=== PATIENT | male | born 1960 | race Caucasian/White ===

== ENCOUNTER 2023-06-01 13:38 | Inpatient (IN) | payer MEDICAID ==
[~2023-06-01] VITALS: Ht 175.3 cm; Wt 56.7 kg
[2023-06-01 14:07] VITALS: BP 117/58; PULSE 109; RESP 19; TEMP 97.9; O2SAT 99
[2023-06-01] MEDS: NACL 0.9% 1,000 ML IV SCH (15:44)
[2023-06-01] MEDS: ONDANSETRON 4 MG/2 ML VIAL IVP ONE (15:54)
[2023-06-01 16:04] LABS: BASOPHILS % (AUTO) 0.2 % (0.0-2.0); EOSINOPHILS % (AUTO) 0.2 % (0.0-4.0); HEMATOCRIT 26.9 % (36-52); HEMOGLOBIN 9.6 g/dL (12.0-18.0); LYMPHOCYTES # (AUTO) 0.3 K/uL (2.0-11.5); LYMPHOCYTES % (AUTO) 2.4 % (20.5-51.1); MEAN CORPUSCULAR HEMOGLOBIN 32 pg (27-31); MEAN CORPUSCULAR HGB CONC 36 g/dL (33-37); MONOCYTES # (AUTO) 1.2 K/uL (0.8-1.0); MONOCYTES % (AUTO) 11.9 % (1.7-9.3); NEUTROPHILS # (AUTO) 8.9 K/uL (1.8-7.7); NEUTROPHILS % (AUTO) 85.3 % (42.2-75.2); PLATELET COUNT (AUTO) 92 K/uL (140-450); RED BLOOD CELL COUNT(AUTO) 2.96 MIL/uL (4.20-6.10); RED CELL DISTRIBUTION WIDTH 15.5 % (11.6-13.7); WHITE BLOOD COUNT (AUTO) 10.5 K/uL (4.8-10.8)
[2023-06-01] MEDS ORDERED: FLUO10CA21 PO (16:04)
[2023-06-01] MEDS ORDERED: AMIO200T62 PO (16:04)
[2023-06-01] MEDS ORDERED: AMYL-43 PO (16:04)
[2023-06-01] MEDS ORDERED: QUET300T1 PO (16:04)
[2023-06-01] MEDS ORDERED: ATOR10TA PO (16:04)
[2023-06-01] MEDS ORDERED: [UNRECOGNIZED DRUG - CODE] IH (16:04)
[2023-06-01] MEDS ORDERED: SENN-72 PO (16:04)
[2023-06-01] MEDS ORDERED: METF-1139 PO (16:04)
[2023-06-01] MEDS ORDERED: VARE1TAB34 PO (16:04)
[2023-06-01] MEDS ORDERED: TOP100 PO (16:04)
[2023-06-01 16:21] LABS: INR 1.33 (0.8-1.2); PARTIAL THROMBOPLASTIN TIME 41.7 secs (22-35.6); PROTHROMBIN TIME 13.8 secs (10.8-13.4)
[2023-06-01 16:36] LABS: ANION GAP 14.4 (8-16); CALCIUM 8.1 mg/dL (8.5-10.1); CARBON DIOXIDE 22.3 mmol/L (21-32); CREATININE 1.1 mg/dL (0.6-1.3)
[2023-06-01 16:38] LABS: ALANINE AMINOTRANSFERASE 89 U/L (12-78); ALBUMIN 1.7 g/dL (3.4-5.0); ALCOHOL, BLOOD < 3 mg/dL (<10); ALKALINE PHOSPHATASE 400 U/L (50-136); ASPARTATE AMINOTRANSFERASE 64 U/L (15-37); BILIRUBIN,DIRECT 6.3 mg/dL (0.0-0.3); CREATINE KINASE, TOTAL 70 U/L (39-308); LIPASE 23 U/L (16-77); POTASSIUM 2.7 mmol/L (3.5-5.1); TOTAL BILIRUBIN 7.5 mg/dL (0.0-1.0); TOTAL PROTEIN, SERUM 5.7 g/dL (6.4-8.2)
[2023-06-01 16:39] LABS: ACETAMINOPHEN < 0.5 ug/ml (10-30); SALICYLATE < 2.8 mg/dL (2.8-20.0)
[2023-06-01 16:49] LABS: LACTIC ACID 2.7 mmol/L (0.4-2.0)
[2023-06-01] MEDS ORDERED: cefTRIAXone 1,000 MG VIAL ONE (17:34)
[2023-06-01] MEDS: NACL 0.9% 1,000 ML IV ONE (17:43)
[2023-06-01] MEDS: metroNIDAZOLE 500 MG/NS PREMIX 100 ML IV ONE (18:33)
[2023-06-01 19:28] LABS: APPEARANCE,URINE CLEAR (CLEAR); BILIRUBIN,URINE 2+ (NEGATIVE); BLOOD, URINE NEGATIVE (NEGATIVE); LEUKOCYTE ESTERASE ,URINE NEGATIVE (NEGATIVE); NITRITE, URINE NEGATIVE (NEGATIVE); PROTEIN,URINE TRACE (NEGATIVE); UGLUCOSE NEGATIVE (NEGATIVE)
[2023-06-01 19:32] LABS: COLOR,URINE ORANGE (YELLOW); ICTOTEST POSITIVE (NEGATIVE)
[2023-06-01 19:39] VITALS: O2SAT 97
[2023-06-01] MEDS: POTASSIUM CHLORIDE 20% 40 MEQ/15 ML UDC PO ONE (19:43)
[2023-06-01] MEDS ORDERED: MORPHINE SULFATE 4 MG/ML SYR IVP PRN (20:45)
[2023-06-01] MEDS ORDERED: ACETAMINOPHEN 325 MG TAB PO PRN (20:45)
[2023-06-01] MEDS ORDERED: HYDROcodone/APAP 5/325 MG 1 TAB TAB PO PRN (20:45)
[2023-06-01] MEDS ORDERED: ZOLPIDEM 10 MG TAB PO PRN ×2 (20:55)
[2023-06-01] MEDS ORDERED: MAG SULF 2000 MG/WATER PREMIX 50 ML IV PRN (20:55)
[2023-06-01] MEDS: PIPERACILLIN/TAZOBACTAM 3.375 GM in DEXTROSE 5% 50 ML IV SCH (21:00)
[2023-06-01] MEDS ORDERED: PIPERACILLIN/TAZOBACTAM 3.375 GM VIAL IV ONE (21:34)
[2023-06-01] MEDS: DEXT 5% / NACL 0.45% 1,000 ML IV SCH (22:23)
[2023-06-02] VITALS (9 sets, daily range): RESP 20; O2SAT 97–99
[2023-06-02 05:34] LABS: BASOPHILS % (AUTO) 0.2 % (0.0-2.0); EOSINOPHILS % (AUTO) 0.4 % (0.0-4.0); HEMATOCRIT 26.5 % (36-52); HEMOGLOBIN 9.1 g/dL (12.0-18.0); LYMPHOCYTES # (AUTO) 0.6 K/uL (2.0-11.5); LYMPHOCYTES % (AUTO) 5.2 % (20.5-51.1); MEAN CORPUSCULAR HEMOGLOBIN 32 pg (27-31); MEAN CORPUSCULAR HGB CONC 34 g/dL (33-37); MEAN CORPUSCULAR VOLUME 91.7 fL (80-94); MONOCYTES # (AUTO) 1.8 K/uL (0.8-1.0); MONOCYTES % (AUTO) 14.7 % (1.7-9.3); NEUTROPHILS # (AUTO) 9.8 K/uL (1.8-7.7); NEUTROPHILS % (AUTO) 79.5 % (42.2-75.2); PLATELET COUNT (AUTO) 117 K/uL (140-450); RED BLOOD CELL COUNT(AUTO) 2.89 MIL/uL (4.20-6.10); WHITE BLOOD COUNT (AUTO) 12.3 K/uL (4.8-10.8)
[2023-06-02] MEDS ORDERED: PIPERACILLIN/TAZOBACTAM 3.375 GM VIAL IV ONE ×2 (05:41→13:30)
[2023-06-02 06:20] LABS: ALBUMIN 1.6 g/dL (3.4-5.0); ANION GAP 9.1 (8-16); CALCIUM 7.7 mg/dL (8.5-10.1); CREATININE 0.9 mg/dL (0.6-1.3); POTASSIUM 3.1 mmol/L (3.5-5.1); TOTAL BILIRUBIN 4.7 mg/dL (0.0-1.0); TOTAL PROTEIN, SERUM 5.3 g/dL (6.4-8.2)
[2023-06-02] MEDS ORDERED: DEXTROSE 50% 50 ML SYR IVP PRN (07:00)
[2023-06-02] MEDS ORDERED: LOVENOX 1MG/KG Q12H SUBQ SCH (07:00)
[2023-06-02] MEDS ORDERED: MORPHINE SULFATE 2 MG/ML SYR IVP PRN (07:05)
[2023-06-02] MEDS: ONDANSETRON 4 MG/2 ML VIAL IVP PRN (07:24)
[2023-06-02] MEDS: PANTOPRAZOLE 40 MG INJ VIAL IVP SCH (07:25)
[2023-06-02] MEDS: BLOOD GLUCOSE MONITORING 1 DEV DEV FS SCH (08:22)
[2023-06-02] MEDS: AMIODARONE 200 MG TAB PO SCH (09:43)
[2023-06-02] MEDS: QUEtiapine FUMARATE 100 MG TAB PO SCH (09:44)
[2023-06-02] MEDS: ENOXAPARIN 80 MG/0.8 ML SYR SUBQ SCH (09:47)
[2023-06-02] MEDS: TOPIRAMATE 100 MG TAB PO SCH (10:44)
[2023-06-02] MEDS: POTASSIUM CHLORIDE 10 MEQ TABER PO PRN (17:20)
[2023-06-02] MEDS ORDERED: VANCOMYCIN PER PHARMACY MC PRN (18:50)
[2023-06-02] MEDS: VANCOMYCIN 1,000 MG in DEXTROSE 5% 250 ML IV SCH (23:20)
[2023-06-03] VITALS (8 sets, daily range): BP systolic 111–119; BP diastolic 54–57; PULSE 20–92; RESP 18–20; TEMP 97.9–98.8; O2SAT 95–97
[2023-06-03] MEDS: PIPERACILLIN/TAZOBACTAM 3.375 GM VIAL IV ONE (06:03)
[2023-06-03 06:55] LABS: ANION GAP 11.7 (8-16); CALCIUM 7.5 mg/dL (8.5-10.1); CARBON DIOXIDE 21.7 mmol/L (21-32); CREATININE 0.8 mg/dL (0.6-1.3); POTASSIUM 3.4 mmol/L (3.5-5.1)
[2023-06-03 09:20] LABS: BASOPHILS # (AUTO) 0.2 K/uL (0.00-0.22); EOSINOPHILS # (AUTO) 0.1 K/uL (0-0.4); HEMATOCRIT 26.5 % (36-52); HEMOGLOBIN 9.1 g/dL (12.0-18.0); LYMPHOCYTES # (AUTO) 0.7 K/uL (2.0-11.5); LYMPHOCYTES % (AUTO) 7.4 % (20.5-51.1); MEAN CORPUSCULAR HEMOGLOBIN 32 pg (27-31); MEAN CORPUSCULAR HGB CONC 34 g/dL (33-37); MONOCYTES % (AUTO) 11.5 % (1.7-9.3); NEUTROPHILS # (AUTO) 7.1 K/uL (1.8-7.7); NEUTROPHILS % (AUTO) 78.1 % (42.2-75.2); PLATELET COUNT (AUTO) 172 K/uL (140-450); RED BLOOD CELL COUNT(AUTO) 2.88 MIL/uL (4.20-6.10); RED CELL DISTRIBUTION WIDTH 16.5 % (11.6-13.7); WHITE BLOOD COUNT (AUTO) 9.1 K/uL (4.8-10.8)
[2023-06-03 11:06] LABS: ALBUMIN 1.5 g/dL (3.4-5.0); ANION GAP 13.6 (8-16); CALCIUM 7.4 mg/dL (8.5-10.1); CREATININE 0.8 mg/dL (0.6-1.3); POTASSIUM 3.6 mmol/L (3.5-5.1); TOTAL BILIRUBIN 3.1 mg/dL (0.0-1.0); TOTAL PROTEIN, SERUM 5.3 g/dL (6.4-8.2)
[2023-06-03 15:08] LABS: HEPATITIS A ANTIBODY IGM Negative (Negative); HEPATITIS A ANTIBODY TOTAL Negative (Negative); HEPATITIS B CORE AB TOTAL Negative (Negative); HEPATITIS B CORE, IGM Negative (Negative); HEPATITIS B SURFACE ANTIBODY Non Reactive (.); HEPATITIS B SURFACE ANTIGEN Negative (Negative); HEPATITIS C VIRUS ANTIBODY Non Reactive (Non Reactive)
[2023-06-04] VITALS (8 sets, daily range): BP systolic 100–154; BP diastolic 48–65; PULSE 70–83; RESP 18; TEMP 97.5–97.7; O2SAT 96–99
[2023-06-04 06:42] LABS: BASOPHILS # (AUTO) 0.1 K/uL (0.00-0.22); EOSINOPHILS # (AUTO) 0.1 K/uL (0-0.4); EOSINOPHILS % (AUTO) 1.5 % (0.0-4.0); HEMATOCRIT 26.5 % (36-52); HEMOGLOBIN 9.1 g/dL (12.0-18.0); LYMPHOCYTES # (AUTO) 0.8 K/uL (2.0-11.5); LYMPHOCYTES % (AUTO) 8.2 % (20.5-51.1); MEAN CORPUSCULAR HEMOGLOBIN 32 pg (27-31); MEAN CORPUSCULAR HGB CONC 35 g/dL (33-37); MEAN CORPUSCULAR VOLUME 92.2 fL (80-94); MONOCYTES # (AUTO) 1.1 K/uL (0.8-1.0); NEUTROPHILS # (AUTO) 7.8 K/uL (1.8-7.7); NEUTROPHILS % (AUTO) 78.3 % (42.2-75.2); PLATELET COUNT (AUTO) 188 K/uL (140-450); RED BLOOD CELL COUNT(AUTO) 2.87 MIL/uL (4.20-6.10); RED CELL DISTRIBUTION WIDTH 16.9 % (11.6-13.7)
[2023-06-04 07:10] LABS: ALBUMIN 1.4 g/dL (3.4-5.0); ANION GAP 12.2 (8-16); CALCIUM 7.5 mg/dL (8.5-10.1); CARBON DIOXIDE 20.9 mmol/L (21-32); CREATININE 0.7 mg/dL (0.6-1.3); POTASSIUM 4.1 mmol/L (3.5-5.1); TOTAL BILIRUBIN 2.3 mg/dL (0.0-1.0); TOTAL PROTEIN, SERUM 5.1 g/dL (6.4-8.2)
[2023-06-04] MEDS: PROPOFOL 200 MG/20 ML VIAL IV ONE (11:38)
[2023-06-04] MEDS: SUCCINYLCHOLINE CHLORIDE 200 MG/10 ML VIAL IVP ONE (11:38)
[2023-06-04] MEDS: ROCURONIUM 50 MG/5 ML VIAL IV ONE (12:05)
[2023-06-04] MEDS: ONDANSETRON 4 MG/2 ML VIAL ONE (12:07)
[2023-06-04] MEDS: NEOSTIGMINE 1:1000 10 MG/10 ML VIAL ONE (12:33)
[2023-06-04] MEDS: GLYCOPYRROLATE 0.2 MG/ML VIAL ONE ×3 (12:33)
[2023-06-04] MEDS: INSULIN LISPRO SLIDING SCALE 100 UNITS/ML VIAL SUBQ PRN (20:33)
[2023-06-05] VITALS: BP 135/63; PULSE 83; PULSE 88; RESP 18; TEMP 98; O2SAT 96
[2023-06-05 04:00] VITALS: BP 132/76; PULSE 74; RESP 18; TEMP 98.9; O2SAT 95
[2023-06-05 07:42] LABS: ALBUMIN 1.5 g/dL (3.4-5.0); ANION GAP 12.8 (8-16); CALCIUM 7.2 mg/dL (8.5-10.1); CARBON DIOXIDE 20.2 mmol/L (21-32); CREATININE 0.8 mg/dL (0.6-1.3); TOTAL BILIRUBIN 1.9 mg/dL (0.0-1.0); TOTAL PROTEIN, SERUM 5.3 g/dL (6.4-8.2)
[2023-06-05 08:36] LABS: HEMOGLOBIN 9.3 g/dL (12.0-18.0); MEAN CORPUSCULAR HEMOGLOBIN 32 pg (27-31); MEAN CORPUSCULAR HGB CONC 34 g/dL (33-37); MEAN CORPUSCULAR VOLUME 92.3 fL (80-94); PLATELET COUNT (AUTO) 231 K/uL (140-450); RED BLOOD CELL COUNT(AUTO) 2.92 MIL/uL (4.20-6.10); RED CELL DISTRIBUTION WIDTH 17.4 % (11.6-13.7); WHITE BLOOD COUNT (AUTO) 8.1 K/uL (4.8-10.8)
[2023-06-05 08:49] VITALS: PULSE 78
[2023-06-05 08:50] VITALS: BP 132/58; PULSE 77; RESP 18; TEMP 97.3; O2SAT 97
[2023-06-05 09:14] LABS: EOSINOPHILS % (MANUAL) 2 % (0-4); LYMPHOCYTES % (MANUAL) 6 % (20-46); METAMYELOCYTES % 4 % (0-0); MONOCYTES % (MANUAL) 8 % (5-12); MYELOCYTES % 1 % (0-0); PLATELET ESTIMATE ADEQUATE
[2023-06-05 10:41] VITALS: BP 132/58; PULSE 77; RESP 18; TEMP 97.3
[2023-06-05] MEDS ORDERED: CIPR500T4 PO (10:43)
[2023-06-05] MEDS ORDERED: METR-435 PO (10:43)
[2023-06-05 12:00] VITALS: BP 132/81; PULSE 79; RESP 18; TEMP 98; O2SAT 97
== END 2023-06-05 14:51 | disposition home or self-care (01) | DRG 720 ==
LOC: MED 13:38 → MTU 20:53
PROVIDERS: ADMIT Family Medicine; ATTEND Family Medicine
PROC: 0FC98ZZ Extirpation of Matter from Common Bile Duct, Via Natural or Artificial Opening Endoscopic (ICD-10-PCS; 2023-06-04)
PROC: 0F798DZ Dilation of Common Bile Duct with Intraluminal Device, Via Natural or Artificial Opening Endoscopic (ICD-10-PCS; principal; 2023-06-04 08:00)
DX: A41.9 Sepsis, unspecified organism (principal); E43 Unspecified severe protein-calorie malnutrition; I31.39 Other pericardial effusion (noninflammatory); D68.9 Coagulation defect, unspecified; K80.31 Calculus of bile duct with cholangitis, unspecified, with obstruction; I48.0 Paroxysmal atrial fibrillation; D64.9 Anemia, unspecified; E11.9 Type 2 diabetes mellitus without complications; E78.5 Hyperlipidemia, unspecified; R65.20 Severe sepsis without septic shock; R74.01 Elevation of levels of liver transaminase levels; K76.9 Liver disease, unspecified; Z79.899 Other long term (current) drug therapy; Z68.1 Body mass index [BMI] 19.9 or less, adult
CPT/HCPCS: 36415; 71045; 74330; 76705; 80048; 80053; 80076; 80202; 81003; 82140; 82550; 82948; 83605; 83690; 83880; 84484; 85025; 85610; 85730; 86704; 86706; 86708; 86709; 86803; 87040; 87081; 87086; 87186; 87340; 93005; 96361; 96365; 96367; 96375; 97116; 97163-GP; 99285; C1727; C1769; C9113; G0480; G0482; J0330; J0696; J1650; J1815; J2405; J2543; J2704; J2710; J3370; J3490; J7030; J7060; Q0092; Q9967